=== PATIENT | male | born 1960 | race Hispanic/Latino ===

== ENCOUNTER 2019-06-23 12:51 | Outpatient (CLI) | payer BC ==
[2019-06-23 13:57] LABS: Hemoglobin 14.6 g/dL (14.0-18.0); Mean Corpuscular HGB CONC 33.6 g/dL (32.0-36.0); Mean Corpuscular Hemoglobin 33.5 pg (27.0-31.0); Mean Corpuscular Volume 99.6 fL (78.0-98.0); Mean Platelet Volume 7.6 fL (7.4-10.4); Platelet Count 238 thou/uL (130-400); RBC Distribution Width 11.4 % (11.5-14.5); Red Blood Cell (RBC) Count 4.36 mill/uL (4.70-6.10); White Blood Cell (WBC) Count 6.8 thou/uL (4.8-10.8)
[2019-06-23 14:01] LABS: INR-International Normal Ratio 0.9; Prothrombin Time 12.4 SEC (12.0-14.7)
[2019-06-23 14:23] LABS: Anion Gap 12 mmol/L (10-20); BUN (Urea Nitrogen) 20 mg/dL (8.4-25.7); Calc. Creatinine Clearance 0 mL/min (70-130); Calcium 9.1 mg/dL (7.8-10.44); Carbon Dioxide 27 mmol/L (22-29); Chloride 102 mmol/L (98-107); Estimated GFR-MDRD 79; Glucose 115 mg/dL (70-105); Potassium 4.3 mmol/L (3.5-5.1); Sodium 137 mmol/L (136-145)
== END 2019-06-23 12:52 | disposition home or self-care (01) ==
LOC: LABBT 12:51
PROVIDERS: ATTEND Orthopaedic Surgery
DX: Z01.818 Encounter for other preprocedural examination (principal); M17.12 Unilateral primary osteoarthritis, left knee; M17.11 Unilateral primary osteoarthritis, right knee
CPT/HCPCS: 80048; 85027; 85610; 87081; 93005; 93010

== ENCOUNTER 2019-06-23 13:00 | Inpatient (IN) | payer BC ==
[2019-06-23 13:05] VITALS: BMI 33.5
[2019-06-30] MEDS ORDERED: Ropivacaine 0.5% HCl/PF (150 MG/30 ML VIAL) ONE (10:10)
[2019-06-30] MEDS ORDERED: Ropivacaine 0.2% HCl/PF (40 MG/20 ML VIAL) ONE (10:10)
[2019-06-30] MEDS ORDERED: Acetaminophen 500 MG TAB ONE (10:14)
[2019-06-30] MEDS ORDERED: CeleCOXIB 100 MG CAP ONE (10:15)
[2019-06-30] MEDS ORDERED: Tranexamic Acid 1,000 MG/10 ML VIAL ONE (10:15)
[2019-06-30] MEDS ORDERED: Gabapentin 300 MG CAP ONE (10:15)
[2019-06-30] MEDS ORDERED: Lidocaine 1% PF 5 ML VIAL ONE (10:32)
[2019-06-30] MEDS ORDERED: Ondansetron PF 4 MG/2 ML Vial ONE (10:32)
[2019-06-30] MEDS ORDERED: PROPOFOL 200 MG/20 ML VIAL ONE (10:32)
[2019-06-30] MEDS ORDERED: Ketorolac Tromethamine 30 MG/ML VIAL ONE (10:32)
[2019-06-30] MEDS ORDERED: Fentanyl 100 MCG/2 ML VIAL ONE ×3 (10:49→15:36)
[2019-06-30] MEDS ORDERED: Midazolam HCl 2 mg/2 ml Vial ONE (10:49)
[2019-06-30] MEDS ORDERED: Ketorolac Tromethamine 30 MG/ML VIAL IVP PRN (11:06)
[2019-06-30] MEDS ORDERED: HYDROcodone/Acetaminophen 5/325 mg Tablet PO PRN (11:06)
[2019-06-30] MEDS ORDERED: Promethazine HCl 25 MG/ML VIAL IM PRN ×3 (11:06→17:00)
[2019-06-30] MEDS ORDERED: traMADol HCl 50 MG TAB PO PRN ×3 (11:06→17:00)
[2019-06-30] MEDS ORDERED: Ondansetron PF 4 MG/2 ML Vial IVP PRN ×2 (11:06→17:00)
[2019-06-30] MEDS ORDERED: Zolpidem Tartrate 5 MG TAB PO PRN ×2 (11:06→17:00)
[2019-06-30] MEDS ORDERED: Ropivacaine HCl/PF 250 ML in Premix Bag 1 BAG NERVE BLCK SCH (11:06)
[2019-06-30] MEDS ORDERED: Fentanyl 100 MCG/2 ML VIAL IV PRN (11:07)
[2019-06-30] MEDS ORDERED: Bupivacaine/Epinephrine 0.25% 30 ML VIAL ONE (12:04)
[2019-06-30] MEDS ORDERED: Betamet Acet/Betamet Na Ph 30 MG/5 ML VIAL ONE (12:04)
[2019-06-30] MEDS ORDERED: Triamcinolone 40 MG/ML VIAL ONE (12:04)
[2019-06-30] MEDS ORDERED: Ondansetron HCl/PF 4 MG/2 ML Vial IVP PRN (12:43)
[2019-06-30] MEDS ORDERED: Promethazine HCl 25 MG/ML VIAL SLOW IVP PRN (12:43)
[2019-06-30] MEDS ORDERED: Morphine 10 MG/ML VIAL ONE (12:52)
--- NOTE | 2019-06-30 15:58 | RAD ---
XR Knee Lt 2 View HISTORY: Left knee arthroplasty FINDINGS: There are postop changes of total knee arthroplasty in good position and alignment. Soft tissue air i s present.
[2019-06-30] MEDS ORDERED: Acetaminophen 325 MG TAB PO PRN (17:00)
[2019-06-30] MEDS ORDERED: diphenhydrAMINE 25 MG CAP PO PRN (17:00)
[2019-06-30] MEDS ORDERED: HYDROcodone/Acetaminophen 10/325 mg Tablet PO PRN (17:00)
[2019-06-30] MEDS: HYDROcodone/Acetaminophen 10/325 mg Tablet PO PRN (17:46)
[2019-06-30] MEDS ORDERED: hydrALAZINE 25 MG TAB PO PRN (18:09)
[2019-06-30] MEDS: Ketorolac Tromethamine 30 MG/ML VIAL IM/IV SCH (20:42)
[2019-06-30] MEDS: CEFAZOLIN 2 GM in Premix Bag 1 BAG IVPB SCH (20:43)
[2019-06-30] MEDS ORDERED: Atorvastatin Calcium 20 MG TAB PO SCH (21:00)
--- NOTE | 2019-07-01 00:23 | CON ---
DATE OF CONSULTATION: PRIMARY CARE PHYSICIAN: Dr. Le. REASON FOR ADMISSION: Left total knee replacement. REASON FOR CONSULTATION: Medical management. HISTORY OF PRESENT ILLNESS: Mr. Carrillo is a very pleasant 58-year-old gentleman who has a history of hyperlipidemia, also has a history of osteoarthritis. He was admitted for an elective left total knee replacement. The patient's complaints pertain primarily to joint pains in the knees as well as his shoulders and currently his pain is controlled. He is postop. He denies any chest pain or shortness of breath, no PND, no orthopnea, no fevers, no chills, and says in general, he is only treated for hyperlipidemia as well as chronic joint pains. No other complaints. REVIEW OF SYSTEMS: All systems were reviewed and are negative except for that mentioned in the history of present illness. PAST MEDICAL HISTORY: Significant for osteoarthritis and tobacco abuse. PAST SURGICAL HISTORY: Negative. ALLERGIES: UNKNOWN. FAMILY HISTORY: Significant for heart disease in his sister as well as arthritis in his father. SOCIAL HISTORY: He is single, has 4 children. He smokes about half a pack a day, but quit on January 24 of this year. He used to use some illicit drugs including crack cocaine and methamphetamine, but he stopped doing that in 2014. He also stopped drinking at that time as well. CURRENT MEDICATIONS: Include; 1. Venlafaxine 75 mg extended release once daily. 2. Pravastatin 80 mg once a day. 3. Aleve 220 mg daily. 4. Celebrex 200 mg daily. PHYSICAL EXAMINATION: GENERAL: He is alert and oriented. He appears to be in no acute distress. He is well developed and well nourished. VITAL SIGNS: Blood pressure is 142/84, heart rate 66, respiratory rate of 16, temperature is 97.5, and O2 saturation is 96% on room air. HEENT: Pupils are equal, round, and reactive to light. Extraocular muscles are intact. His sclerae are anicteric. Throat; there is no erythema, no exudates. NECK: No adenopathy. No bruits. LUNGS: Clear to auscultation. There is no wheezing, no rales, no rhonchi. CARDIOVASCULAR: He has a normal S1 and S2. There is no S3 or S4. No murmurs, clicks, or rubs. ABDOMEN: Obese. It is soft. It is nontender, nondistended, positive for bowel sounds. There is no rebound, no guarding, no organomegaly. EXTREMITIES: There is no clubbing or cyanosis. No edema. The left leg is currently in an [place] wrap. NEUROLOGIC: The exam is nonfocal. IMAGING STUDIES: He had an EKG on June 23, which was reviewed and showed sinus bradycardia, some voltage criteria for LVH, and there are no specific ST wave changes. This is by my reading. ASSESSMENT: This is a pleasant 58-year-old gentleman who is being admitted for an elective left total knee replacement. He does not have many chronic medical conditions with the exception of hyperlipidemia in which he is on pravastatin for. His blood pressure is currently controlled. Therefore for the hyperlipidemia, we would agree with continuing pravastatin. We will place him on p.r.n. hydralazine if needed, but otherwise if he remains stable overnight, then likely we may sign off and just reconsult if needed. Job ID: [id number]
[2019-07-01 04:34] LABS: Hemoglobin 12.5 g/dL (14.0-18.0); Mean Corpuscular HGB CONC 34.3 g/dL (32.0-36.0); Mean Corpuscular Hemoglobin 34.4 pg (27.0-31.0); Mean Platelet Volume 7.9 fL (7.4-10.4); Platelet Count 203 thou/uL (130-400); RBC Distribution Width 11.2 % (11.5-14.5); Red Blood Cell (RBC) Count 3.64 mill/uL (4.70-6.10); White Blood Cell (WBC) Count 13.3 thou/uL (4.8-10.8)
[2019-07-01] MEDS: CEFAZOLIN 2 GM in Premix Bag 1 BAG IVPB SCH (05:21)
[2019-07-01] MEDS: Ketorolac Tromethamine 30 MG/ML VIAL IM/IV SCH ×3 (05:21→19:47)
[2019-07-01] MEDS: Venlafaxine HCl XR 75 MG CAP PO SCH (05:25)
[2019-07-01] MEDS ORDERED: Polyethylene Glycol 3350 17 GM Packet PO PRN (07:53)
[2019-07-01] MEDS: Senokot S 8.6-50 MG TAB PO SCH ×2 (09:41→19:46)
[2019-07-01] MEDS: Enoxaparin Sodium 40 MG/0.4 ML SYRINGE SC SCH (09:41)
[2019-07-01] MEDS: Multivitamin W/ Minerals 1 TAB PO SCH (09:42)
[2019-07-01] MEDS: Ferrous Gluconate 324 MG TAB PO SCH ×2 (09:42→17:51)
[2019-07-01] MEDS: HYDROcodone/Acetaminophen 5/325 mg Tablet PO PRN (10:14)
[2019-07-01] MEDS: HYDROcodone/Acetaminophen 10/325 mg Tablet PO PRN (14:46)
--- NOTE | 2019-07-01 16:33 | PRG ---
DATE OF SERVICE: 07/01/2019 SUBJECTIVE: The patient is postop day #1 status post left total knee arthroplasty and aspiration injection of right knee. The patient is awake and alert. Pain is well controlled. He has no complaints. Mobilizing well with physical therapy. Voiding without difficulty. OBJECTIVE: VITAL SIGNS: The patient is afebrile, temperature 98.4, pulse 87, respiratory rate of 20, blood pressure is 115/75. GENERAL: The patient is awake, alert, and oriented x3. CHEST: Bilateral breath sounds. HEART: Regular rate and rhythm. ABDOMEN: Soft, nontender with active bowel sounds. EXTREMITIES: Left lower extremity, dressing is changed. Incision is intact. The patient is neurovascularly intact distally. Range of motion is from 5 to 80 degrees. LABORATORY DATA: Laboratory testing shows a white count of 13,300 with a hemoglobin of 12.5, hematocrit 36.5, and platelet count of 293,000. ASSESSMENT AND PLAN: Status post left total knee arthroplasty and aspiration injection of right knee, post day #1. Overall, the patient is doing well. We will continue to mobilize with physical therapy. Remove pain catheter today. Aquacel Ag dressing was applied to the patient's knee. The patient will mobilize with physial therapy tomorrow and plan is for discharge to home tomorrow with Home Health for physical therapy. Continue current care. Job ID: [id number]
[2019-07-01] MEDS ORDERED: Atorvastatin Calcium 20 MG TAB PO SCH (21:00)
--- NOTE | 2019-07-01 22:28 | PDOC.HOSPP ---
- Subjective Encounter Date: 07/01/19 Encounter Time: 09:00 Subjective: Patient seen and examined for med mngt. Pain controlled. No fever/chills/CP. No new complaints. No overnight events - Objective Vital Signs & Weight: Vital Signs (12 hours) Temp Pulse Resp BP Pulse Ox 07/01/19 20:00 98 07/01/19 19:24 98.5 F 89 16 126/72 98 07/01/19 11:45 98.4 F 87 20 115/75 92 L Weight Weight 208 lb I&O: 06/30/19 07/01/19 07/02/19 06:59 06:59 06:59 Intake Total 980 Output Total 800 Balance 180 Result Diagrams: 07/02/19 04:41 EKG Reviewed by me: Yes (SR) Hospitalist ROS - Review of Systems Respiratory: denies: cough, dry, shortness of breath, hemoptysis, SOB with excertion, pleuritic pain, sputum, wheezing, other Cardiovascular: denies: chest pain, palpitations, orthopnea, paroxysmal noc. dyspnea, edema, light headedness, other - Medication Medications: Active Medications Generic Name Dose Route Start Last Admin Trade Name Freq PRN Reason Stop Dose Admin Hydrocodone Bitart/Acetaminophen 1 tab 06/30/19 11:06 07/01/19 05:25 [place] 5/325 PO 1 tab Q4H PRN Administration Mild Pain (1-3) Hydrocodone Bitart/Acetaminophen 2 tab 06/30/19 11:06 07/01/19 10:14 [place] 5/325 PO 2 tab Q4H PRN Administration For Moderate Pain 4-6 Hydrocodone Bitart/Acetaminophen 2 tab 06/30/19 17:00 07/01/19 14:46 [place] 10/325 PO 2 tab Q4H PRN Administration Severe Pain (7-10) Atorvastatin Calcium 20 mg 07/01/19 21:00 07/01/19 19:46 Lipitor PO 20 mg HS MARIA L Administration Diphenhydramine HCl 25 mg 06/30/19 17:00 07/01/19 01:14 Benadryl PO 25 mg Q6H PRN Administration Itching Enoxaparin Sodium 40 mg 07/01/19 09:00 07/01/19 09:41 Lovenox SC 40 mg 0900 MARIA L Administration Ferrous Gluconate 324 mg 07/01/19 08:00 07/01/19 17:51 Fergon PO 324 mg BID-WM MARIA L Administration Iron/Minerals/Multivitamins 1 tab 07/01/19 09:00 07/01/19 09:42 Theragran M PO 1 tab DAILY MARIA L Administration Ketorolac Tromethamine 30 mg 06/30/19 11:06 06/30/19 17:47 Toradol IVP 07/03/19 11:07 30 mg Q6H PRN Administration Moderate Pain (4-6) Ketorolac Tromethamine 30 mg 06/30/19 22:00 07/01/19 19:47 Toradol IM/IV 07/02/19 14:01 30 mg Q8HR MARIA L Administration Senna/Docusate Sodium 2 tab 07/01/19 09:00 07/01/19 19:46 Senokot S PO 2 tab BID MARIA L Administration Sodium Chloride 10 ml 06/30/19 21:00 07/01/19 19:47 Flush - Normal Saline IVF 10 ml Q12HR MARIA L Administration Venlafaxine HCl 75 mg 07/01/19 09:00 07/01/19 05:25 Effexor Xr PO 75 mg DAILY MARIA L Administration - Exam General Appearance: NAD Heart: RRR, no gallops Respiratory: CTAB, no rales Gastrointestinal: soft, non-tender, non-distended, normal bowel sounds Extremities: no edema Neurological: no new deficit Hosp A/P (1) HLD (hyperlipidemia) Code(s): E78.5 - HYPERLIPIDEMIA, UNSPECIFIED Status: Acute (2) Obesity (BMI 30.0-34.9) Code(s): E66.9 - OBESITY, UNSPECIFIED Status: Chronic (3) Anxiety Code(s): F41.9 - ANXIETY DISORDER, UNSPECIFIED Status: Chronic (4) CKD (chronic kidney disease) Code(s): N18.9 - CHRONIC KIDNEY DISEASE, UNSPECIFIED Status: Acute Qualifiers: Chronic kidney disease stage: stage 2 (mild) Qualified Code(s): N18.2 - Chronic kidney disease, stage 2 (mild) (5) Chronic anemia Code(s): D64.9 - ANEMIA, UNSPECIFIED Status: Chronic - Plan plan discussed w/ family, PT/OT, incentive spirometry, DVT proph w/SCDs Cont Statins Cont Effexor Patient will probably be discharged in AM Will sign off. Please call if needed
[2019-07-02 05:04] LABS: Hemoglobin 10.8 g/dL (14.0-18.0); Mean Corpuscular HGB CONC 33.7 g/dL (32.0-36.0); Mean Corpuscular Hemoglobin 34.2 pg (27.0-31.0); Mean Platelet Volume 7.7 fL (7.4-10.4); Platelet Count 194 thou/uL (130-400); RBC Distribution Width 11.3 % (11.5-14.5); Red Blood Cell (RBC) Count 3.17 mill/uL (4.70-6.10); White Blood Cell (WBC) Count 18.4 thou/uL (4.8-10.8)
[2019-07-02] MEDS: Ketorolac Tromethamine 30 MG/ML VIAL IM/IV SCH (05:26)
[2019-07-02] MEDS: Ferrous Gluconate 324 MG TAB PO SCH (08:24)
[2019-07-02] MEDS: Venlafaxine HCl XR 75 MG CAP PO SCH (08:24)
[2019-07-02] MEDS: Multivitamin W/ Minerals 1 TAB PO SCH (08:25)
[2019-07-02] MEDS: Enoxaparin Sodium 40 MG/0.4 ML SYRINGE SC SCH (08:25)
[2019-07-02] MEDS: HYDROcodone/Acetaminophen 5/325 mg Tablet PO PRN (08:31)
[2019-07-02 08:54] VITALS: BP 130/82; TEMP 98.4
--- NOTE | 2019-07-02 10:29 | PRG ---
DATE OF SERVICE: 07/02/2019 SUBJECTIVE: The patient did well overnight. Pain well controlled with p.o. pain medication. Voiding without difficulty. Tolerating diet. Afebrile. Vital signs stable. OBJECTIVE: GENERAL: The patient is awake and alert. Oriented to x3. CHEST: Clear to auscultation. HEART: Regular rate and rhythm. ABDOMEN: Soft, nontender, and nondistended with active bowel sounds. VITAL SIGNS: Temperature 98.4, pulse 76, respiratory rate 18, and blood pressure 130/82. LABORATORY DATA: White count is 18,400, hemoglobin is 10.8, hematocrit 32.1, and platelet count 194,000. ASSESSMENT AND PLAN: Status post left total knee arthroplasty. Postoperative day #2. The patient mobilizing well. Stable and ready for discharge to home. We will continue at home health for physical therapy. The patient has an Aquacel Ag dressing in place, which determined to be in place for a week. After a week, he can change it to a fresh Aquacel Ag dressing. The patient will be discharged on his prehospitalization medication with the addition of [place], Mobic, enteric-coated aspirin, and Keflex. The patient will follow up in 2 weeks in orthopedic outpatient clinic. Discharge home at this time in stable and satisfactory condition. Job ID: [id number]
--- NOTE | 2019-07-02 17:35 | DIS ---
DATE OF ADMISSION: 06/30/2019 DATE OF DISCHARGE: 07/02/2019 DIAGNOSES: 1. Osteoarthritis, left knee. 2. Osteoarthritis, right knee. PROCEDURES PERFORMED: 1. Left total knee arthroplasty. 2. Aspiration injection of right knee. SURGEON: Aidan Sales MD HOSPITAL COURSE: The patient is a 58-year-old male with a long history of degenerative arthritis of both knees, who had been tried on and failed conservative management. The patient was admitted, where above procedure performed without complications. Postoperatively, he has done very well. He is mobilized with physical therapy. Tolerating diet. Voiding without difficulty. Pain is well controlled with p.o. pain medications. At this time, he is felt to be read for home. He will continue with home health for physical therapy and nursing. The patient has an Aquacel Ag dressing in place, which can remain in place for a week. After that time, the dressing should be changed to a fresh Aquacel dressing. The second dressing can stay in place until his followup appointment in 2 weeks. The patient will continue with thigh-high KRISTIN hose until his followup appointment. The patient will be discharged on his prehospitalization medication with the addition of [place], Mobic, enteric-coated aspirin, and Keflex. The patient will up in 2 weeks in Orthopedic Outpatient Clinic. Discharged to home at this time in stable and satisfactory condition. Job ID: [id number]
--- NOTE | 2019-07-04 14:51 | OP ---
DATE OF PROCEDURE: 06/30/2019 PREOPERATIVE DIAGNOSES: 1. Osteoarthritis, left knee. 2. Osteoarthritis, right knee. POSTOPERATIVE DIAGNOSES: 1. Osteoarthritis, left knee. 2. Osteoarthritis, right knee. PROCEDURES PERFORMED: 1. Left total knee arthroplasty. 2. Aspiration and injection, left knee. ANESTHESIA: General with regional block. FLUIDS: 1000 mL of lactated Ringer's. ESTIMATED BLOOD LOSS: Less than 50 mL. TOURNIQUET TIME: 56 minutes. IMPLANTS USED: A DJO size 7 left 3D porous-coated femoral component with a DJO EMPOWR size 7 left porous-coated tibial component, a DJO EMPOWR 3D size 7 x 12 mm tibial insert, and a size 38 tri-peg cemented patellar component. FINDINGS: The patient had severe degenerative changes throughout the knee with eburnation of articular cartilage on distal femur, proximal tibia, and patella. Large periarticular osteophytes. DESCRIPTION OF PROCEDURE: The patient was seen in the preoperative holding area. Preoperative history and physical was reviewed. No interval changes were noted. Planned procedure was discussed. The patient's questions were answered. Surgical site was signed. Regional anesthesia was then administered by the anesthesiologist. The patient was brought to the operative suite. General anesthesia was administered in standard fashion. The patient was placed supine on the operative table. Initially, the left knee was prepped in superolateral position. Then, under sterile technique, 3 mL of clear fluid was aspirated, and the knee was injected with a combination of 0.5% Marcaine with epinephrine, 30 mg of Celestone, and 40 mg of Kenalog. Band-Aid was then applied. We turned attention to the left knee. The left knee was then prepped and draped in standard sterile fashion. Multidisciplinary surgical time-out was carried out. The limb was exsanguinated, and the tourniquet was inflated to 300 mmHg. An incision was made on the anterior aspect of the knee extending from just above the patella down to the tibial tubercle. Sharp dissection was carried through the skin and the subcutaneous tissue. Hemostasis was achieved with Bovie cautery. The knee was entered through a midvastus approach. Patella was translated laterally. Anterior horn of the medial and lateral menisci was removed by Bovie dissection, and portion of the retropatellar fat pad was removed by Bovie dissection. Deep fibers of the medial collateral ligament were partially elevated off the tibial attachment. A Z retractor was placed deep to the medial collateral ligament. At this point, the patella was partially everted and held with towel clips. I cut using freehand technique and sized to a size 38. Final patellar preparation was carried out, and a patella protector was placed. The patella was translated laterally. Hohmann retractor was placed deep to the lateral collateral ligament. The knee was placed in 90 degrees. Intramedullary canal of the femur was found using the drill. Intramedullary alignment guide was affixed to the distal femur, pinned in position, and removed 10 mm in 5 degrees of valgus. The distal femur was resection. Rongeur was used to remove any distal osteophytes. The knee was found to be quite tight, so at this point, I decided to go ahead and cut the tibia. An extramedullary alignment guide was affixed to the lower leg and pinned in position to remove 10 mm of high [place] on the lateral tibial plateau. This was checked with an extramedullary drop dar. Ex-pin was placed in the resection block, and the proximal tibia was resected using oscillating saw. The resected tibial fragment was passed off for sizing purposes. At this point, the sizing guide was used to size the femur to a size 7. A 4-in-1 cutting block was inserted. Femoral rotation was established off posterior condyles. Anterior and posterior cuts were made using the oscillating saw, and the anterior and posterior chamfer cuts were made. At this point, rongeurs were used to remove any residual osteophytes off the medial and lateral femoral condyles. At this point, a bone hook was placed in the intercondylar notch to expose the posterior aspect of the knee. A 3/4-inch curved osteotome was used to remove the posterior osteophytes off the medial and lateral femoral condyles and strip the posterior capsule. Any remaining posterior horn of the medial and lateral menisci were removed with Bovie cautery. PCL retractor was then placed. The tibia was translated anteriorly. Final tibial preparation was carried out, and trial tibial baseplate was left in position. Trial femoral component was inserted. The knee was trialed with sequential plastic insert and found to be stable with full flexion and extension with a 12-mm insert. Trial patellar button was placed. The knee was taken through a range of motion. The patella tracked nicely. At this point, all trial components were removed. The knee was dried thoroughly. Hemostasis was achieved with Bovie cautery. At this point, the tibial and femoral components were impacted in position. The final tibial insert was impacted in position. I then turned my attention to the patella. The patella was washed, pulsed lavage, and dried thoroughly. The final patellar component was cemented in position. After the cement had hardened, the knee was taken through a range of motion. It had full flexion and extension with good medial and lateral stability and good patella tracking. At this point, the split in the vastus medialis was closed with #1 Vicryl suture in a [id number] fashion. Care was taken to close the deep fascial layer. Patellar retinaculum was closed with #1 Vicryl suture in a [id number] fashion. The capsular repair was then oversewn with #1 Stratafix barbed suture. At this point, the subcutaneous tissue was reapproximated with inverted 2-0 Vicryl sutures. Skin was closed with a running 3-0 Stratafix suture. After the skin closure had been applied, Surgicel glue was applied to the wound. A sterile dressing was applied to the patient's knee. The patient was then awakened and returned to recovery room in stable and satisfactory condition. All needle and instrument counts were correct. There were no complications. Job ID: [id number]
--- NOTE | 2019-07-05 02:11 | PQF ---
[facility] Crystal Reports Winform Viewer VAL GA JR, JEFFREY NEAL MD [id number] [facility] 3314 [id number] CLINICAL DOCUMENTATION CLARIFICATION FORM: POST DISCHARGE Addendum to original discharge summary date: ____ Late entry note date: __ DATE: 07/05/19 ATTN: Jaylon Luke Please exercise your independent, professional judgment in responding to the clarification form. Clinical indicators are provided on the bottom of this form for your review Conflicting documentation was noted in the Medical record, can you please clarify the laterality of the procedure being performed? Procedure: Aspiration and injection [ ] Site(s) (Specify body part i.e. distal femur, radial nerve, transverse colon) Laterality: [ ] Left [ ] Right [ ] Bilateral [ ] Unable to determine [ ] Other procedure: CLINICAL INDICATORS OP Report pg.1 06/30- "Postoperative diagnosis: 1. Osteoporosis left knee 2. Osteoporosis right knee" OP Report pg.1 06/30- "Procedure performed: Aspiration and injection, left knee " OP Report pg.1-2 06/30- "3ml of clear fluid was aspirated, and the knee was injected witha combination of 0.5% Marcaine with epinephrine, 30mg of Celestone and 40mg of Kenalog" DS 07/02/19 pg.1- "Procedure performed: Aspiration injection of right knee" RISK FACTORS Osteoarthritis, left knee- DS 07/02/19 pg.1 Osteoarthritis, right knee- DS 07/02/19 pg.1 TREATMENT Left total knee arthroplasty-DS 07/02/19 pg.1 Aspiration injection of right knee-DS 07/02/19 pg.1 (This form is maintained as a part of the permanent medical record) 2015 [employer] All Rights Reserved Scott [email or web address] [not provided] [email or web address]
== END 2019-07-02 10:36 | disposition home health service (06) | DRG 470 ==
LOC: SURG A 06-30 09:17 → SJJU 06-30 16:32
PROVIDERS: ADMIT Orthopaedic Surgery; ATTEND Orthopaedic Surgery
PROC: 0SRD0J9 Replacement of Left Knee Joint with Synthetic Substitute, Cemented, Open Approach (ICD-10-PCS; principal; 2019-06-30)
PROC: 3E0U3BZ Introduction of Anesthetic Agent into Joints, Percutaneous Approach (ICD-10-PCS; 2019-06-30)
PROC: 3E0U33Z Introduction of Anti-inflammatory into Joints, Percutaneous Approach (ICD-10-PCS; 2019-06-30)
PROC: 0S9C3ZZ Drainage of Right Knee Joint, Percutaneous Approach (ICD-10-PCS; 2019-06-30)
DX: M17.0 Bilateral primary osteoarthritis of knee (principal); E66.9 Obesity, unspecified; N18.2 Chronic kidney disease, stage 2 (mild); D63.1 Anemia in chronic kidney disease; E78.5 Hyperlipidemia, unspecified; F41.9 Anxiety disorder, unspecified; Z87.891 Personal history of nicotine dependence; Z79.899 Other long term (current) drug therapy; Z68.33 Body mass index [BMI] 33.0-33.9, adult
CPT/HCPCS: 36415; 85027; C1713; J0690; J0702; J1650; J1885; J2001; J2250; J2270; J2405; J2550; J2704; J2795; J3010; J3301; Q0163

== ENCOUNTER 2021-08-09 13:46 | Emergency (ER) | payer BC | END 2021-08-09 15:15 | disposition left against medical advice (07) | LOC: ERS 13:46 | DX: Z53.21 Procedure and treatment not carried out due to patient leaving prior to being seen by health care provider (principal) ==

== ENCOUNTER 2021-08-14 12:29 | Emergency (ER) | payer BC ==
[2021-08-14 13:32] LABS: #Basophils 0.1 thou/uL (0.0-0.2); #Eosinphils 0.5 thou/uL (0.0-0.7); #Monocytes 0.6 thou/uL (0.11-0.59); #Neutrophils 4.7 thou/uL (1.40-6.50); %Basophils 1.4 % (0.0-1.0); %Eosinophils 6.3 % (0.0-10.0); %Lymphocytes 25.4 % (21.0-51.0); %Monocytes 7.9 % (0.0-10.0); %Neutrophils 59.1 % (42.0-75.0); Hemoglobin 16.1 g/dL (14.0-18.0); Mean Corpuscular HGB CONC 32.4 g/dL (32.0-36.0); Mean Corpuscular Hemoglobin 33.3 pg (27.0-31.0); Mean Platelet Volume 7.1 fL (7.4-10.4); Platelet Count 274 thou/uL (130-400); RBC Distribution Width 11.7 % (11.5-14.5); Red Blood Cell (RBC) Count 4.84 mill/uL (4.70-6.10)
[2021-08-14 13:51] LABS: ALT (SGPT) 17 U/L (8-55); AST (SGOT) 20 U/L (5-34); Albumin 4.1 g/dL (3.5-5.0); Alkaline Phosphatase 107 U/L (40-110); Anion Gap 13 mmol/L (10-20); BUN (Urea Nitrogen) 18 mg/dL (8.4-25.7); Bilirubin, Total 0.9 mg/dL (0.2-1.2); Calc. Creatinine Clearance 0 mL/min (70-130); Calcium 9.2 mg/dL (7.8-10.44); Carbon Dioxide 25 mmol/L (22-29); Chloride 102 mmol/L (98-107); Globulin 3.5 g/dL (2.4-3.5); Glucose 122 mg/dL (70-105); Potassium 3.8 mmol/L (3.5-5.1); Protein, Total 7.6 g/dL (6.0-8.3); Sodium 136 mmol/L (136-145)
[2021-08-14] MEDS ORDERED: Ketorolac Tromethamine 30 MG/ML VIAL ONE (14:06)
[2021-08-14 16:40] LABS: Bilirubin Negative (Negative); Blood, Urine Negative (Negative); Clarity Clear (Clear); Glucose, Urine (Dipstick) Normal (Negative); Ketone, Urine Negative (Negative); Leukocyte Negative Leu/uL (Negative); Nitrite Negative (Negative); Protein, Urine (Dipstick) 20 mg/dL (Neg-Trace); Urobilinogen Normal mg/dL (Less than 2); pH, Urine 5.5 (5.0-9.0)
== END 2021-08-14 17:25 | disposition home or self-care (01) ==
LOC: ERS 12:29
DX: R10.9 Unspecified abdominal pain (principal); F17.210 Nicotine dependence, cigarettes, uncomplicated; Z79.899 Other long term (current) drug therapy
CPT/HCPCS: 36415; 74177; 80053; 81003; 85025; 96374; J1885

== ENCOUNTER 2021-10-07 09:46 | Emergency (ER) | payer BC, SELFPAY ==
[2021-10-07 10:39] LABS: #Basophils 0.1 thou/uL (0.0-0.2); #Eosinphils 0.5 thou/uL (0.0-0.7); #Lymphocytes 1.5 thou/uL (1.20-3.40); #Monocytes 0.6 thou/uL (0.11-0.59); #Neutrophils 3.7 thou/uL (1.40-6.50); %Basophils 1.1 % (0.0-1.0); %Eosinophils 8.6 % (0.0-10.0); %Lymphocytes 22.8 % (21.0-51.0); %Monocytes 9.5 % (0.0-10.0); Hemoglobin 16.2 g/dL (14.0-18.0); Mean Corpuscular HGB CONC 33.4 g/dL (32.0-36.0); Mean Corpuscular Hemoglobin 34.7 pg (27.0-31.0); Mean Platelet Volume 6.7 fL (7.4-10.4); Platelet Count 252 thou/uL (130-400); RBC Distribution Width 12.3 % (11.5-14.5); Red Blood Cell (RBC) Count 4.67 mill/uL (4.70-6.10); White Blood Cell (WBC) Count 6.4 thou/uL (4.8-10.8)
[2021-10-07 11:14] LABS: ALT (SGPT) 12 U/L (8-55); AST (SGOT) 13 U/L (5-34); Albumin 3.6 g/dL (3.5-5.0); Alkaline Phosphatase 75 U/L (40-110); Anion Gap 10 mmol/L (10-20); BUN (Urea Nitrogen) 8 mg/dL (8.4-25.7); Bilirubin, Total 0.9 mg/dL (0.2-1.2); Calc. Creatinine Clearance 0 mL/min (70-130); Calcium 8.8 mg/dL (7.8-10.44); Carbon Dioxide 30 mmol/L (22-29); Chloride 103 mmol/L (98-107); Globulin 2.7 g/dL (2.4-3.5); Glucose 89 mg/dL (70-105); Lipase 9 U/L (8-78); Potassium 4.1 mmol/L (3.5-5.1); Protein, Total 6.3 g/dL (6.0-8.3); Sodium 139 mmol/L (136-145)
[2021-10-07] MEDS ORDERED: Ondansetron PF 4 MG/2 ML Vial ONE (12:19)
[2021-10-07] MEDS ORDERED: Morphine 4 MG/ML VIAL ONE ×2 (12:19→15:36)
[2021-10-07] MEDS ORDERED: Iopamidol-370 76% 500 ML 1 ML ONE (13:23)
[2021-10-07] MEDS ORDERED: Iopamidol 370 76% 50 ML VIAL FS ONE (13:23)
[2021-10-07 15:03] LABS: Bilirubin Negative (Negative); Blood, Urine Negative (Negative); Clarity Clear (Clear); Glucose, Urine (Dipstick) Normal (Negative); Ketone, Urine Negative (Negative); Leukocyte Negative Leu/uL (Negative); Nitrite Negative (Negative); Protein, Urine (Dipstick) Negative (Neg-Trace); Urobilinogen Normal mg/dL (Less than 2); pH, Urine 6.5 (5.0-9.0)
== END 2021-10-07 17:00 | disposition home or self-care (01) ==
LOC: ERS 09:46
DX: K40.90 Unilateral inguinal hernia, without obstruction or gangrene, not specified as recurrent (principal); E78.5 Hyperlipidemia, unspecified; F17.210 Nicotine dependence, cigarettes, uncomplicated; Z79.899 Other long term (current) drug therapy
CPT/HCPCS: 36415; 74177; 80053; 81003; 83690; 85025; 87086; 96374; 96375; 96376; J2270; J2405; Q9967

== ENCOUNTER 2021-10-21 17:18 | Emergency (ER) | payer SELFPAY ==
[2021-10-21] MEDS ORDERED: Lidocaine Viscous Sol 2% 15 ml UD Cup ONE (18:19)
[2021-10-21] MEDS ORDERED: Mag-Al 1200 mg/1200 mg/30 ML UDCUP ONE (18:19)
[2021-10-21 18:26] LABS: #Basophils 0.1 thou/uL (0.0-0.2); #Eosinphils 0.5 thou/uL (0.0-0.7); #Lymphocytes 2.2 thou/uL (1.20-3.40); #Monocytes 0.6 thou/uL (0.11-0.59); %Basophils 1.2 % (0.0-1.0); %Eosinophils 7.3 % (0.0-10.0); %Lymphocytes 29.6 % (21.0-51.0); %Monocytes 7.8 % (0.0-10.0); %Neutrophils 54.1 % (42.0-75.0); Hemoglobin 15.2 g/dL (14.0-18.0); Mean Corpuscular HGB CONC 32.2 g/dL (32.0-36.0); Mean Corpuscular Hemoglobin 32.9 pg (27.0-31.0); Mean Platelet Volume 7.5 fL (7.4-10.4); Platelet Count 282 thou/uL (130-400); RBC Distribution Width 11.8 % (11.5-14.5); Red Blood Cell (RBC) Count 4.61 mill/uL (4.70-6.10); White Blood Cell (WBC) Count 7.4 thou/uL (4.8-10.8)
[2021-10-21 18:58] LABS: ALT (SGPT) 14 U/L (8-55); AST (SGOT) 20 U/L (5-34); Albumin 3.7 g/dL (3.5-5.0); Alkaline Phosphatase 84 U/L (40-110); Anion Gap 13 mmol/L (10-20); BUN (Urea Nitrogen) 15 mg/dL (8.4-25.7); Bilirubin, Total 0.5 mg/dL (0.2-1.2); Calc. Creatinine Clearance 0 mL/min (70-130); Calcium 9.5 mg/dL (7.8-10.44); Carbon Dioxide 28 mmol/L (22-29); Chloride 99 mmol/L (98-107); Globulin 3.4 g/dL (2.4-3.5); Glucose 94 mg/dL (70-105); Lipase 22 U/L (8-78); Potassium 4.3 mmol/L (3.5-5.1); Protein, Total 7.1 g/dL (6.0-8.3); Sodium 136 mmol/L (136-145)
== END 2021-10-21 19:33 | disposition home or self-care (01) ==
LOC: ERS 17:18
DX: R10.13 Epigastric pain (principal); R06.00 Dyspnea, unspecified; F17.210 Nicotine dependence, cigarettes, uncomplicated; M19.90 Unspecified osteoarthritis, unspecified site; E78.5 Hyperlipidemia, unspecified
CPT/HCPCS: 80053; 83690; 84484; 85025; 93005

== ENCOUNTER 2021-12-11 19:59 | Emergency (ER) | payer SELFPAY ==
[2021-12-11] MEDS ORDERED: predniSONE 20 MG TAB ONE (20:32)
[2021-12-12 11:09] LABS: SARS-CoV-2 PCR by NAA DETECTED (NotDetected)
== END 2021-12-11 21:06 | disposition home or self-care (01) ==
LOC: ERS 19:59
DX: U07.1 COVID-19 (principal); J12.82 Pneumonia due to coronavirus disease 2019; E78.5 Hyperlipidemia, unspecified; M19.90 Unspecified osteoarthritis, unspecified site; F17.210 Nicotine dependence, cigarettes, uncomplicated; Z87.19 Personal history of other diseases of the digestive system
CPT/HCPCS: 71045; 94640; J7512; U0003; U0005